=== PATIENT | male | born 1960 | race Caucasian/White ===

== ENCOUNTER 2018-09-21 23:39 | Emergency (ER) | payer OTHER ==
[~2018-09-21] VITALS: Ht 167.6 cm; Wt 78.0 kg
[~2018-09-21 23:39] MED LIST: ATOR40TA PO; METF850T PO; PIOG15TA2 PO
--- NOTE | 2018-09-21 23:51 | NUR ---
TO BED # 11 AMBULATORY
--- NOTE | 2018-09-22 00:03 | NUR ---
X-RAY AT BEDSIDE.
--- NOTE | 2018-09-22 00:15 | NUR ---
PT BIB DAUGHTER C/O ELBOW PAIN. PT STATES SUDDEN ONSET OF RIGHT ELBOW PAIN, DENIES INJURY OR TRAUMA. PT STATES INTERMITTENT PAIN 10/10, RADIATES TO RIGHT PINKY FINGER, FINGER WILL FEEL NUMB WHEN PAIN IS PRESENT. AROM, UNABLE TO EXTENT STRAIGHT EXTREMITY STRAIGHT. PT STATES HE IS COMPLIANT W/ HOME MEDICATION. PT ACTING APPROPRIATLY, SPEAKING IN CLEAR AND COMPLETE SENTENCES. PMH: DIABETES, HTN
[2018-09-22] MEDS ORDERED: HYDROcodone/APAP 5/325 MG 1 TAB TAB PO ONE ×2 (01:20→01:45)
--- NOTE | 2018-09-22 02:09 | NUR ---
JANICE WRAP PLACED ON PT R ELBOW. +CSM
--- NOTE | 2018-09-22 02:10 | NUR ---
Patient discharged with v/s stable. Patient acting appropriatly, states pain has decreased to 3/10 after recieving pain medication; patient states he is ready to go home. Written and verbal after care instructions given and explained. Patient alert, oriented and verbalized understanding of instructions. Ambulatory with steady gait. All questions addressed prior to discharge. ID band removed. Patient advised to follow up with PMD. Rx of Naprosyn given. Patient educated on indication of medication including possible reaction and side effects. Opportunity to ask questions provided and answered.
[2018-09-22 02:53] VITALS: BP 145/89
== END 2018-09-22 02:10 | disposition home or self-care (01) ==
LOC: MED 23:39
DX: M19.021 Primary osteoarthritis, right elbow (principal); E11.9 Type 2 diabetes mellitus without complications; I10 Essential (primary) hypertension; Z79.84 Long term (current) use of oral hypoglycemic drugs; Z79.899 Other long term (current) drug therapy
CPT/HCPCS: 73080; 99283; Q0092

== ENCOUNTER 2019-04-06 23:14 | Emergency (ER) | payer OTHER ==
[~2019-04-06] VITALS: Ht 162.6 cm; Wt 74.8 kg
[2019-04-06 23:23] VITALS: BP 190/76
[2019-04-07] MEDS: DEXAMETHASONE 10 MG/ML VIAL IM ONE (00:25)
[2019-04-07 00:43] VITALS: BP 190/76
== END 2019-04-07 00:43 | disposition home or self-care (01) ==
LOC: MED 23:14
DX: J02.9 Acute pharyngitis, unspecified (principal); Z79.899 Other long term (current) drug therapy; I10 Essential (primary) hypertension; E11.9 Type 2 diabetes mellitus without complications; N28.9 Disorder of kidney and ureter, unspecified
CPT/HCPCS: 96372; 99283; J1100